=== PATIENT | male | born 1945 | race Caucasian/White ===

== ENCOUNTER 2017-06-09 19:39 | Emergency (ER) | payer MEDICARE ==
[~2017-06-09] VITALS: Ht 177.8 cm; Wt 78.7 kg
[~2017-06-09 19:39] MED LIST: ALBU8I; GUAI100S6 PO; PRED10PA PO; ZITH500T PO; eye drops
[2017-06-09 20:36] VITALS: BP 117/59; PULSE 96; RESP 19; TEMP 99.6; O2SAT 94
[2017-06-09 23:14] VITALS: BP 141/77; PULSE 77; RESP 18; TEMP 99.6; O2SAT 95
--- NOTE | 2017-06-09 23:34 | PD ---
HPI Chief Complaint: Cold / Flu Symptoms Time Seen by Provider: 23:12 Travel History International Travel<30 days: No Contact w/Intl Traveler<30days: No Traveled to known affect area: No History of Present Illness HPI patient 72-year-old male quite pleasant presents emergency department for evaluation of cough congestion for the past 4 days. Patient also endorses some mild body aches. Denies any nausea vomiting diarrhea. Intermittent fevers. States the cough is dry although he feels like he can't get up his phlegm. States he did not get a flu shot this year, is a cigar smoker daily. States symptoms are moderate, gradually worsening, for the past 4 days, context as above. PFSH Past Medical History Diminished Hearing: No Tetanus Vaccination: Unknown Influenza Vaccination: Yes Past Surgical History Abdominal Surgery: Yes (hernia repair) Other Surgery: Yes (back surgery) Social History Alcohol Use: Yes (daily) Tobacco Use: Yes (2 cigars daily) Substance Use: No Allergies-Medications (Allergen,Severity, Reaction): Coded Allergies: No Known Allergies (Verified Adverse Reaction, Unknown, 06/09/17) Reported Meds & Prescriptions Reported Meds & Active Scripts Active Reported Lovastatin 20 Mg Tab 20 Mg PO DAILY Oxycodone-Acetaminophen 5-325 mg Tab 1 Tab PO Q6H PRN Naproxen 250 Mg Tab 250 Mg PO BID Amlodipine (Amlodipine Besylate) 10 Mg Tab 10 Mg PO DAILY Azithromycin 250 Mg Tab 250 Mg PO DAILY Review of Systems Except as stated in HPI: all other systems reviewed are Neg Physical Exam Narrative GENERAL: Well-developed well-nourished no obvious distress SKIN: Focused skin assessment warm/dry. HEAD: Atraumatic. Normocephalic. EYES: Pupils equal and round. No scleral icterus. No injection or drainage. ENT: No nasal bleeding or discharge. Mucous membranes pink and moist. TMs clear bilaterally, oropharynx clear moist. NECK: Trachea midline. No JVD. CARDIOVASCULAR: Regular rate and rhythm. No murmur appreciated. RESPIRATORY: No accessory muscle use. Clear to auscultation. Breath sounds equal bilaterally. GASTROINTESTINAL: Abdomen soft, non-tender, nondistended. Hepatic and splenic margins not palpable. MUSCULOSKELETAL: No obvious deformities. No clubbing. No cyanosis. No edema. NEUROLOGICAL: Awake and alert. No obvious cranial nerve deficits. Motor grossly within normal limits. Normal speech. PSYCHIATRIC: Appropriate mood and affect; insight and judgment normal. Data Data Last Documented VS Vital Signs Date Time Temp Pulse Resp B/P (MAP) Pulse Ox O2 Delivery O2 Flow Rate FiO2 06/10/17 01:01 78 18 96 06/10/17 01:00 Room Air 06/09/17 23:14 99.6 Orders Orders Chest, Pa & Lat (06/09/17 ) Ed Discharge Order (06/10/17 00:13) MDM Medical Decision Making Medical Screen Exam Complete: Yes Emergency Medical Condition: Yes Differential Diagnosis Influenza, pneumonia, sepsis highly unlikely. Narrative Course patient roomed emerged permit, appears quite well and in no obvious distress, chest x-ray negative does show some scar tissue and the patient is a smoker. Discussed smoking cessation and smoking's many adverse health effects including heart attack and stroke as well as cancers. Patient was offered influenza testing but at this point he would be out of the realm for Tamiflu and therefore no indication for testing for influenza. He appears well, discussed symptomatic management returned ED criteria. He is stable for discharge Diagnosis Primary Impression: Flu-like symptoms Patient Instructions: General Instructions, H1N1 Influenza in Children (GEN) Additional Instructions: Try Mucinex DM [id number], take Tylenol or ibuprofen as needed for fever, stay hydrated with water and Gatorade. If you have worsening shortness of breath fever U cannot control or other symptoms that are worsening please return to the emergency department. Disposition: 01 DISCHARGE HOME Condition: Stable Jose Mcdowell MD Jun 09, 2017 23:34
[2017-06-09] MEDS ORDERED: AMLO10TA2 PO (23:37)
[2017-06-09] MEDS ORDERED: OXYC1TAB63 PO (23:37)
[2017-06-09] MEDS ORDERED: AZIT250T3 PO (23:37)
[2017-06-09] MEDS ORDERED: LOVA20TA PO (23:37)
[2017-06-09] MEDS ORDERED: NAPR250T4 PO (23:37)
--- NOTE | 2017-06-10 00:09 | RADRPT ---
EXAM DATE/TIME: 06/09/2017 23:28 [facility] COMPARISON: No previous studies available for comparison. INDICATIONS : Cough, fever, flu-like symptoms for 4 days MEDICAL HISTORY : Hypertension. SURGICAL HISTORY : None. ENCOUNTER: Initial ACUITY: 4 - 6 days PAIN SCORE: 0/10 LOCATION: Bilateral chest FINDINGS: PA and lateral views of the chest demonstrate the lungs to be symmetrically aerated without evidence of mass, infiltrate or effusion. There is hyperaeration of both lung gallegos. The cardiomediastinal c ontours are unremarkable. Osseous structures are intact. CONCLUSION: Hyperaeration both lung gallegos. No acute pulmonary infiltrates. Leon Moran MD on June 10, 2017 at 0:06 Board Certified Radiologist. This report was verified electronically.
[2017-06-10 01:00] VITALS: PULSE 78; RESP 18; O2SAT 96
== END 2017-06-10 01:02 | disposition home or self-care (01) ==
LOC: PHED 19:39
DX: J11.1 Influenza due to unidentified influenza virus with other respiratory manifestations (principal); F17.290 Nicotine dependence, other tobacco product, uncomplicated
CPT/HCPCS: 71046; 99283

== ENCOUNTER 2017-06-13 08:02 | Emergency (ER) | payer MEDICARE ==
[~2017-06-13] VITALS: Ht 177.8 cm; Wt 77.0 kg
[~2017-06-13 08:02] MED LIST changes: -ALBU8I; +AMLO10TA2 PO; +AZIT250T3 PO; -GUAI100S6 PO; +LOVA20TA PO; +NAPR250T4 PO; +OXYC1TAB63 PO; -PRED10PA PO; -ZITH500T PO; -eye drops
[2017-06-13 08:08] VITALS: BP 155/67; PULSE 91; RESP 18; TEMP 98.3; O2SAT 94
[2017-06-13] MEDS ORDERED: RESP: ALBUTEROL 2.5 MG/IPRATROPIUM 0.5 MG NEB (SCH) NEB ONE (08:30)
--- NOTE | 2017-06-13 08:32 | PD ---
HPI Chief Complaint: Cold / Flu Symptoms Time Seen by Provider: 08:14 Travel History International Travel<30 days: No Contact w/Intl Traveler<30days: No Traveled to known affect area: No History of Present Illness HPI This 72-year-old male is complaining of cough and congestion. He gets short of breath at times. He was here last and diagnosed with the flu. When he was here he has been having symptoms for about 4 days of cough congestion and fever. Flu test was not done as he was out of the window for Tamiflu. Since leaving he has not and feeling any better. He did smoke cigarettes in the past, he now only smokes cigars. He's been having low- grade fever and a nonproductive cough. He was told of a heart murmur in the past. He had a chest x-ray done which showed hyperaeration on both sides but no infiltrates. He has never been diagnosed with COPD. PFSH Past Medical History Cardiovascular Problems: Yes High Cholesterol: Yes Diminished Hearing: No Hypertension: Yes Tetanus Vaccination: Unknown Influenza Vaccination: Yes Past Surgical History Abdominal Surgery: Yes (hernia repair) Other Surgery: Yes (back surgery) Social History Alcohol Use: Yes (daily "couple of drinks") Tobacco Use: Yes (2 cigars daily) Substance Use: No Allergies-Medications (Allergen,Severity, Reaction): Coded Allergies: No Known Allergies (Verified Allergy, Unknown, 06/13/17) Reported Meds & Prescriptions Reported Meds & Active Scripts Active Ventolin Hfa 18 GM Inh (Albuterol Sulfate) 90 Mcg/Act Aer 2 Puff INH Q4-6H PRN Amoxicillin 500 Mg Tab 500 Mg PO TID 7 Days Medrol Dosepak (Methylprednisolone) 4 Mg Dspk 4 Mg PO DIRECTED Per Pharmacist direction Reported Lovastatin 20 Mg Tab 20 Mg PO DAILY Naproxen 250 Mg Tab 250 Mg PO BID Amlodipine (Amlodipine Besylate) 10 Mg Tab 10 Mg PO DAILY Review of Systems General / Constitutional: Positive: Fever, Chills Eyes: No: Diploplia, Blurred Vision HENT: Positive: Sore Throat, No: Headaches, Vertigo Cardiovascular: Positive: Chest Pain or Discomfort Respiratory: Positive: Cough, Shortness of Breath Gastrointestinal: No: Vomiting, Diarrhea Genitourinary: No: Dysuria Musculoskeletal: Positive: Myalgias Neurologic: Positive: Weakness Endocrine: No: Heat Intolerance, Cold Intolerance Hematologic/Lymphatic: No: Easy Bruising Physical Exam Narrative GENERAL: Well-developed male SKIN: Focused skin assessment warm/dry. HEAD: Atraumatic. Normocephalic. EYES: Pupils equal and round. No scleral icterus. No injection or drainage. ENT: No nasal bleeding or discharge. Mucous membranes pink and moist. NECK: Trachea midline. No JVD. Pharynx erythematous CARDIOVASCULAR: Regular rate and rhythm. No murmur appreciated. RESPIRATORY: He has bilateral rhonchi and occasional wheeze GASTROINTESTINAL: Abdomen soft, non-tender, nondistended. Hepatic and splenic margins not palpable. MUSCULOSKELETAL: No obvious deformities. No clubbing. No cyanosis. No edema. NEUROLOGICAL: Awake and alert. No obvious cranial nerve deficits. Motor grossly within normal limits. Normal speech. PSYCHIATRIC: Appropriate mood and affect; insight and judgment normal. Data Data Last Documented VS Vital Signs Date Time Temp Pulse Resp B/P (MAP) Pulse Ox O2 Delivery O2 Flow Rate FiO2 06/13/17 08:18 95 Room Air 06/13/17 08:08 98.3 91 18 155/67 (96) Orders Orders Electrocardiogram (06/13/17 08:25) Complete Blood Count With Diff (06/13/17 08:25) Comprehensive Metabolic Panel (06/13/17 08:25) Troponin I (06/13/17 08:25) B-Type Natriuretic Peptide (06/13/17 08:25) Albuterol-Ipratropium Neb (Duoneb Neb) (06/13/17 08:30) Chest, Pa & Lat (06/13/17 08:54) Ceftriaxone Inj (Rocephin Inj) (06/13/17 09:30) Methylprednisolone So Succ Inj (Solumedr (06/13/17 09:30) Ed Discharge Order (06/13/17 10:10) Labs Laboratory Tests Test 06/13/17 09:00 White Blood Count 14.4 TH/MM3 Red Blood Count 4.38 MIL/MM3 Hemoglobin 14.1 GM/DL Hematocrit 42.9 % Mean Corpuscular Volume 98.0 FL Mean Corpuscular Hemoglobin 32.2 PG Mean Corpuscular Hemoglobin Concent 32.8 % Red Cell Distribution Width 16.5 % Platelet Count 398 TH/MM3 Mean Platelet Volume 8.0 FL Neutrophils (%) (Auto) 83.2 % Lymphocytes (%) (Auto) 7.2 % Monocytes (%) (Auto) 8.7 % Eosinophils (%) (Auto) 0.5 % Basophils (%) (Auto) 0.4 % Neutrophils # (Auto) 12.0 TH/MM3 Lymphocytes # (Auto) 1.0 TH/MM3 Monocytes # (Auto) 1.2 TH/MM3 Eosinophils # (Auto) 0.1 TH/MM3 Basophils # (Auto) 0.1 TH/MM3 CBC Comment DIFF FINAL Differential Comment Blood Urea Nitrogen 10 MG/DL Creatinine 0.68 MG/DL Random Glucose 97 MG/DL Total Protein 6.8 GM/DL Albumin 2.8 GM/DL Calcium Level 8.5 MG/DL Alkaline Phosphatase 63 U/L Aspartate Amino Transf (AST/SGOT) 48 U/L Alanine Aminotransferase (ALT/SGPT) 33 U/L Total Bilirubin 0.9 MG/DL Sodium Level 133 MEQ/L Potassium Level 3.7 MEQ/L Chloride Level 100 MEQ/L Carbon Dioxide Level 20.0 MEQ/L Anion Gap 13 MEQ/L Estimat Glomerular Filtration Rate 114 ML/MIN Troponin I LESS THAN 0.02 NG/ML B-Type Natriuretic Peptide 240 PG/ML MDM Medical Decision Making Medical Screen Exam Complete: Yes Emergency Medical Condition: Yes Medical Record Reviewed: Yes Differential Diagnosis Differential diagnosis includes pneumonia, influenza, COPD exacerbation Narrative Course Patient has been given a couple of aerosol treatment with minimal improvement. Chest x-ray is read as showing fibrotic changes without acute infiltrate. I believe he is having a exacerbation of COPD which is triggered by influenza. He will be put on antibiotics and Solu-Medrol as well as albuterol. Diagnosis Primary Impression: COPD exacerbation Scripts Albuterol 18 GM Inh (Ventolin Hfa 18 GM Inh) 90 Mcg/Act Aer 2 PUFF INH Q4-6H Y for SHORTNESS OF BREATH, #1 INHALER 0 Refills Prov: Gunnar Robison MD 06/13/17 Amoxicillin (Amoxicillin) 500 Mg Tab 500 MG PO TID for Infection for 7 Days, TAB 0 Refills Prov: Gunnar Robison MD 06/13/17 Methylprednisolone Dosepak (Medrol Dosepak) 4 Mg Dspk 4 MG PO DIRECTED, #1 DSPK 0 Refills Per Pharmacist direction Prov: Gunnar Robison MD 06/13/17 Disposition: 01 DISCHARGE HOME Condition: Stable Gunnar Robison MD Jun 13, 2017 08:32
[2017-06-13 09:11] LABS: BASOPHIL # 0.1 TH/MM3 (0-0.2); BASOPHIL % 0.4 % (0.0-2.0); EOSINOPHIL # 0.1 TH/MM3 (0-0.4); EOSINOPHIL % 0.5 % (0.0-4.0); HEMATOCRIT 42.9 % (39.0-51.0); HEMOGLOBIN 14.1 GM/DL (13.0-17.0); LYMPH % 7.2 % (9.0-44.0); MEAN CORPUSCULAR HEMOGLOBIN 32.2 PG (27.0-34.0); MEAN CORPUSCULAR HGB CONC 32.8 % (32.0-36.0); MONO % 8.7 % (0.0-8.0); MONOCYTE # 1.2 TH/MM3 (0-0.9); NEUT % 83.2 % (16.0-70.0); PLATELET COUNT 398 TH/MM3 (150-450); RED BLOOD COUNT 4.38 MIL/MM3 (4.50-5.90); RED CELL DISTRIBUTION WIDTH 16.5 % (11.6-17.2); WHITE BLOOD COUNT 14.4 TH/MM3 (4.0-11.0)
--- NOTE | 2017-06-13 09:29 | RADRPT ---
EXAM DATE/TIME: 06/13/2017 09:08 [facility] COMPARISON: CHEST SINGLE AP, February 12, 2012, 10:42. CHEST PA & LAT, June 09, 2017, 23:28. INDICATIONS : Short of breath MEDICAL HISTORY : Hypertension. SURGICAL HISTORY : None. ENCOUNTER: [facility] ACUITY: 1 week PAIN SCORE: 0/10 LOCATION: Bilateral chest FINDINGS: Again noted is hyperinflation and mild interstitial basilar lung disease which is unchanged. No acute consolidated process superimposed. CONCLUSION: Stable chest with no acute cardiopulmonary process Jules Miller MD on June 13, 2017 at 9:24 Board Certified Radiologist. This report was verified electronically.
[2017-06-13] MEDS ORDERED: cefTRIAXone INJ 1,000 MG in SODIUM CHLORIDE 0.9% INJ 100 ML IV ONE (09:30)
[2017-06-13] MEDS ORDERED: methylPREDNISolone SOD SUCC 125 MG/2 ML VIAL IV PUSH ONE (09:30)
[2017-06-13] MEDS ORDERED: MEDR4PAK PO (09:33)
[2017-06-13] MEDS ORDERED: AMOX500T PO (09:33)
[2017-06-13] MEDS ORDERED: VENTAER INH (09:34)
[2017-06-13 09:55] LABS: ALBUMIN 2.8 GM/DL (3.4-5.0); CALCIUM 8.5 MG/DL (8.5-10.1); GLUCOSE,RANDOM 97 MG/DL (74-106)
[2017-06-13 09:58] LABS: CREATININE 0.68 MG/DL (0.60-1.30); GLOMERULAR FILTRATION RATE 114 ML/MIN (>89)
[2017-06-13 10:00] LABS: TOTAL BILIRUBIN ADULT 0.9 MG/DL (0.2-1.0); TOTAL PROTEIN 6.8 GM/DL (6.4-8.2)
[2017-06-13 10:01] LABS: ALKALINE PHOSPHATASE 63 U/L (45-117)
[2017-06-13 10:03] LABS: CHLORIDE 100 MEQ/L (98-107); SODIUM (NA) 133 MEQ/L (136-145); TROPONIN I LESS THAN 0.02 NG/ML (0.02-0.05)
[2017-06-13 10:07] LABS: ALT (GPT) 33 U/L (12-78)
[2017-06-13 10:11] LABS: AST (GOT) 48 U/L (15-37); BLOOD UREA NITROGEN 10 MG/DL (7-18)
--- NOTE | 2017-06-13 16:03 | EKG ---
Date Performed: 06/13/2017 Time Performed: 08:42:57 PTAGE: 72 years EKG: WANDERING ATRIAL PACEMAKER POSSIBLE RIGHT VENTRICULAR CONDUCTION DELAY ABNORMAL RHYTHM ECG Compared to PREVIOUS TRACING , wandering pacer is new. PREVIOUS TRACIN02/12/2012 10.33 DOCTOR: Amadou Padgett Interpretating Date/Time 06/13/2017 16:02:39
== END 2017-06-13 10:24 | disposition home or self-care (01) ==
LOC: PHEFT 08:02
DX: J44.1 Chronic obstructive pulmonary disease with (acute) exacerbation (principal); R94.31 Abnormal electrocardiogram [ECG] [EKG]; I10 Essential (primary) hypertension; E78.00 Pure hypercholesterolemia, unspecified; F17.290 Nicotine dependence, other tobacco product, uncomplicated; Z79.899 Other long term (current) drug therapy
CPT/HCPCS: 71046; 80053; 83880; 84484; 85025; 93005; 94640; 94664; 96365; 96375; 99285; J0696; J2930

== ENCOUNTER 2017-06-21 09:19 | Emergency (ER) | payer MEDICARE ==
[~2017-06-21] VITALS: Ht 170.2 cm; Wt 77.9 kg
[~2017-06-21 09:19] MED LIST changes: +AMOX500T PO; -AZIT250T3 PO; +MEDR4PAK PO; -OXYC1TAB63 PO; +VENTAER INH
[2017-06-21 09:24] VITALS: BP 173/82; PULSE 101; RESP 16; TEMP 98; O2SAT 97
[2017-06-21 09:32] LABS: BILIRUBIN, URINE NEG (NEG); BLOOD, URINE NEG (NEG); GLUCOSE,URINE NEG (NEG); KETONE, URINE NEG (NEG); NITRITE,URINE NEG (NEG); URINE LEUKOCYTE ESTERASE NEG (NEG)
[2017-06-21] MEDS ORDERED: GLUC100013 PO (09:34)
[2017-06-21] MEDS ORDERED: CIPR-9 PO (09:34)
[2017-06-21] MEDS ORDERED: TIMO0.5S30 EACH EYE (09:34)
[2017-06-21 09:37] LABS: RBC, URINE 0-3 /hpf (0-3); SQUAMOUS EPITHELIAL CELL URINE 0-5 /hpf (0-5); URINE COLOR YELLOW (YELLW/STRAW)
--- NOTE | 2017-06-21 09:46 | PD ---
HPI Chief Complaint: Complaint Time Seen by Provider: 09:29 Travel History International Travel<30 days: No Contact w/Intl Traveler<30days: No Traveled to known affect area: No History of Present Illness HPI 72 y/o male presents with difficulty urinating over the past 3 days. He states he can only get out a small amount. He states it is gotten worse since his doctor placed him on ciprofloxacin. He states they placed him on that and took a urinalysis sample at the same time but he did not get the results. He states that he has not been able to urinate bathroom and it has just been seeping out in small amounts into his underwear. He denies other specific complaints at this time but is difficult to get history from as he cannot recall the exact amount At the current time. PFSH Past Medical History Cardiovascular Problems: Yes High Cholesterol: Yes Diminished Hearing: No Hypertension: Yes Past Surgical History Abdominal Surgery: Yes (hernia repair) Other Surgery: Yes (back surgery) Social History Alcohol Use: Yes (daily "couple of drinks") Tobacco Use: Yes (2 cigars daily) Substance Use: No Allergies-Medications (Allergen,Severity, Reaction): Coded Allergies: No Known Allergies (Verified Allergy, Unknown, 06/21/17) Reported Meds & Prescriptions Reported Meds & Active Scripts Active Reported Glucosamine (Glucosamine Sulfate) 1,000 Mg Cap 1,000 Mg PO DAILY Timolol Opth Drops 0.5 % Soln 1 Drop EACH EYE BID Cipro (Ciprofloxacin HCl) 500 Mg Tab 500 Mg PO BID Lovastatin 20 Mg Tab 20 Mg PO DAILY Amlodipine (Amlodipine Besylate) 10 Mg Tab 10 Mg PO DAILY Review of Systems Except as stated in HPI: all other systems reviewed are Neg Physical Exam Narrative GENERAL: Well-nourished, well-developed patient. SKIN: Warm and dry. HEAD: Normocephalic and atraumatic. EYES: No injection or drainage. ENT: No nasal drainage noted. NECK: Supple, trachea midline. CARDIOVASCULAR: Regular rate and rhythm RESPIRATORY: Breath sounds equal bilaterally. No accessory muscle use. GASTROINTESTINAL: Abdomen soft, non-tender, nondistended. EXTREMITIES: No edema. NEUROLOGICAL: Awake and alert. moves all extremities and sensory grossly within normal limits. Normal speech. Data Data Last Documented VS Vital Signs Date Time Temp Pulse Resp B/P (MAP) Pulse Ox O2 Delivery O2 Flow Rate FiO2 06/21/17 10:42 81 20 141/70 (93) 96 06/21/17 09:24 98.0 Orders Orders Urinalysis - C+S If Indicated (06/21/17 09:23) Complete Blood Count With Diff (06/21/17 09:35) Comprehensive Metabolic Panel (06/21/17 09:35) Lipase (06/21/17 09:35) Ct Abd/Pel W/O Iv Contrast (06/21/17 ) Iv Access Insert/Monitor (06/21/17 09:35) Urinary Catheter Insert/Apply (06/21/17 09:35) Ed Discharge Order (06/21/17 11:14) Labs Laboratory Tests Test 06/21/17 09:23 06/21/17 09:48 Urine Collection Type CLEAN CATCH Urine Color YELLOW Urine Turbidity CLEAR Urine pH 6.0 Urine Specific [place] 1.011 Urine Protein NEG mg/dL Urine Glucose (UA) NEG mg/dL Urine Ketones NEG mg/dL Urine Occult Blood NEG Urine Nitrite NEG Urine Bilirubin NEG Urine Leukocyte Esterase NEG Urine RBC 0-3 /hpf Urine Squamous Epithelial Cells 0-5 /hpf Microscopic Urinalysis Comment CULT NOT INDICATED Urine Collection Time 09:23 White Blood Count 14.5 TH/MM3 Red Blood Count 4.57 MIL/MM3 Hemoglobin 14.8 GM/DL Hematocrit 45.1 % Mean Corpuscular Volume 98.7 FL Mean Corpuscular Hemoglobin 32.3 PG Mean Corpuscular Hemoglobin Concent 32.7 % Red Cell Distribution Width 17.3 % Platelet Count 484 TH/MM3 Mean Platelet Volume 7.6 FL Neutrophils (%) (Auto) 73.1 % Lymphocytes (%) (Auto) 12.4 % Monocytes (%) (Auto) 11.7 % Eosinophils (%) (Auto) 0.9 % Basophils (%) (Auto) 1.9 % Neutrophils # (Auto) 10.6 TH/MM3 Lymphocytes # (Auto) 1.8 TH/MM3 Monocytes # (Auto) 1.7 TH/MM3 Eosinophils # (Auto) 0.1 TH/MM3 Basophils # (Auto) 0.3 TH/MM3 CBC Comment DIFF FINAL Differential Comment Blood Urea Nitrogen 17 MG/DL Creatinine 1.10 MG/DL Random Glucose 104 MG/DL Total Protein 7.1 GM/DL Albumin 3.2 GM/DL Calcium Level 8.5 MG/DL Alkaline Phosphatase 53 U/L Aspartate Amino Transf (AST/SGOT) 29 U/L Alanine Aminotransferase (ALT/SGPT) 38 U/L Total Bilirubin 1.0 MG/DL Sodium Level 136 MEQ/L Potassium Level 3.8 MEQ/L Chloride Level 102 MEQ/L Carbon Dioxide Level 22.9 MEQ/L Anion Gap 11 MEQ/L Estimat Glomerular Filtration Rate 65 ML/MIN Lipase 309 U/L MDM Medical Decision Making Medical Screen Exam Complete: Yes Emergency Medical Condition: Yes Medical Record Reviewed: Yes (pmh confirmed) Interpretation(s) CBC & BMP Diagram 06/21/17 09:48 Total Protein 7.1, Albumin 3.2 L, Calcium Level 8.5, Alkaline Phosphatase 53, Aspartate Amino Transf (AST/SGOT) 29, Alanine Aminotransferase (ALT/SGPT) 38, Total Bilirubin 1.0 CT abdomen pelvis shows enlarged prostate, bladder wall thickening, diverticulosis without diverticulitis, stone within the kidney without ureteral stone-patient given copy for follow-up UA without UTI Differential Diagnosis UTI, obstruction, stone, renal failure, constipation Narrative Course Will check blood work, urinalysis, CT scan abdominal pelvis and reevaluate Patient with 1200 mL immediate urine output and feeling better Patient advised to keep Diaz in place and follow with his urologist. Given mild leukocytosis and bladder wall thickening recommended to continue ciprofloxacin.Patient denies any new complaints and states that they are feeling better. Patient happy with care, all questions answered. Patient knows that follow up is incumbent on them and to return to the emergency room immediately if new or worsening symptoms develop. Patient given strict return precautions, vitals reviewed and are normal, agrees to further workup as an outpatient. Diagnosis Primary Impression: Urinary retention Patient Instructions: General Instructions Additional Instructions: Return as needed, continue antibiotic, follow with your urologist this week, keep Diaz catheter in place Med/Other Pt SpecificInfo: No Change to Meds Disposition: 01 DISCHARGE HOME Condition: Stable Mirta Jay MD Jun 21, 2017 09:46
[2017-06-21 09:54] LABS: AUTOMATED NEUTROPHIL # 10.6 TH/MM3 (1.8-7.7); BASOPHIL # 0.3 TH/MM3 (0-0.2); BASOPHIL % 1.9 % (0.0-2.0); EOSINOPHIL # 0.1 TH/MM3 (0-0.4); EOSINOPHIL % 0.9 % (0.0-4.0); HEMATOCRIT 45.1 % (39.0-51.0); HEMOGLOBIN 14.8 GM/DL (13.0-17.0); LYMPH % 12.4 % (9.0-44.0); LYMPHOCYTE # 1.8 TH/MM3 (1.0-4.8); MEAN CELL VOLUME 98.7 FL (80.0-100.0); MEAN CORPUSCULAR HEMOGLOBIN 32.3 PG (27.0-34.0); MEAN CORPUSCULAR HGB CONC 32.7 % (32.0-36.0); MEAN PLATELET VOLUME 7.6 FL (7.0-11.0); MONO % 11.7 % (0.0-8.0); MONOCYTE # 1.7 TH/MM3 (0-0.9); NEUT % 73.1 % (16.0-70.0); PLATELET COUNT 484 TH/MM3 (150-450); RED BLOOD COUNT 4.57 MIL/MM3 (4.50-5.90); RED CELL DISTRIBUTION WIDTH 17.3 % (11.6-17.2); WHITE BLOOD COUNT 14.5 TH/MM3 (4.0-11.0)
[2017-06-21 10:08] LABS: CHLORIDE 102 MEQ/L (98-107); SODIUM (NA) 136 MEQ/L (136-145)
[2017-06-21 10:11] LABS: CALCIUM 8.5 MG/DL (8.5-10.1)
[2017-06-21 10:12] LABS: ALBUMIN 3.2 GM/DL (3.4-5.0); BICARBONATE 22.9 MEQ/L (21.0-32.0); BLOOD UREA NITROGEN 17 MG/DL (7-18); GLUCOSE,RANDOM 104 MG/DL (74-106); LIPASE 309 U/L (73-393)
[2017-06-21 10:15] LABS: AST (GOT) 29 U/L (15-37); GLOMERULAR FILTRATION RATE 65 ML/MIN (>89)
[2017-06-21 10:16] LABS: ALT (GPT) 38 U/L (12-78)
[2017-06-21 10:17] LABS: TOTAL PROTEIN 7.1 GM/DL (6.4-8.2)
[2017-06-21 10:18] LABS: ALKALINE PHOSPHATASE 53 U/L (45-117)
[2017-06-21 10:42] VITALS: BP 141/70; PULSE 81; RESP 20; O2SAT 96
--- NOTE | 2017-06-21 11:09 | RADRPT ---
EXAM DATE/TIME: 06/21/2017 10:07 [facility] COMPARISON: No previous studies available for comparison. INDICATIONS : Unable to urinate. ORAL CONTRAST: No oral contrast ingested. RADIATION DOSE: 16.97 CTDIvol (mGy) MEDICAL HISTORY : Hypercholesterolemia. Hypertension. SURGICAL HISTORY : Hernia repair. Back surgery. ENCOUNTER: Initial ACUITY: 3 days PAIN SCALE: 0/10 LOCATION: pelvis TECHNIQUE: Volumetric scanning of the abdomen and pelvis was performed. Using automated exposure control and ad justment of the mA and/or kV according to patient size, radiation dose was kept as low as reasonably achievable to obtain optimal diagnostic quality images. DICOM format image data is available electro nically for review and comparison. FINDINGS: No acute findings in the liver, spleen, adrenals, pancreas. Calcified gallstones in gallbladder witho ut biliary ductal dilatation. There is mild dilatation of the extrarenal pelvis bilaterally, worse on the right side. Tiny nonobstr ucting calcifications present in the left kidney. Bilateral renal cysts. The prostate is markedly enlarged measuring up to 7.4 cm in diameter. Diaz catheter present in the b ladder some bladder wall thickening. Colonic diverticulosis present. CONCLUSION: 1. Prostate enlarged to 7.4 cm in diameter a Diaz catheter in bladder. Bladder wall thickening. 2. Mild dilatation of extrarenal pelvis bilaterally, slightly worse on the right. Tiny nonobstructing calcifications in the left kidney. 3. Colonic diverticulosis without diverticulitis. James Owen MD on June 21, 2017 at 11:01 Board Certified Radiologist. This report was verified electronically.
== END 2017-06-21 11:40 | disposition home or self-care (01) ==
LOC: PHED 09:19
DX: N40.1 Benign prostatic hyperplasia with lower urinary tract symptoms (principal); R33.8 Other retention of urine; E78.00 Pure hypercholesterolemia, unspecified; I10 Essential (primary) hypertension; F17.290 Nicotine dependence, other tobacco product, uncomplicated
CPT/HCPCS: 74176; 80053; 81001; 83690; 85025; 99284

== ENCOUNTER 2017-07-10 07:49 | Emergency (ER) | payer MEDICARE ==
[~2017-07-10] VITALS: Ht 177.8 cm; Wt 74.0 kg
[~2017-07-10 07:49] MED LIST changes: -AMOX500T PO; +CIPR-9 PO; +GLUC100013 PO; -MEDR4PAK PO; -NAPR250T4 PO; +TIMO0.5S30 EACH EYE; -VENTAER INH
[2017-07-10 07:51] VITALS: BP 160/75; PULSE 105; RESP 16; TEMP 98; O2SAT 98
--- NOTE | 2017-07-10 08:12 | PD ---
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 Reports urinary retention secondary to an enlarged prostate. Catheter was placed 3 weeks ago. Started malfunctioning yesterday with complete obstruction last night. Denies any nausea vomiting diarrhea or fever. Completed antibiotics. Following with urology. REPLACED BY [facility] Past Medical History Cardiovascular Problems: Yes High Cholesterol: Yes Diminished Hearing: No Hypertension: Yes Influenza Vaccination: Yes Past Surgical History Abdominal Surgery: Yes (hernia repair) Other Surgery: Yes (back surgery) Social History Alcohol Use: Yes (daily "couple of drinks") Tobacco Use: Yes (2 cigars daily) Substance Use: No Allergies-Medications (Allergen,Severity, Reaction): Coded Allergies: No Known Allergies (Verified Allergy, Unknown, 07/10/17) Reported Meds & Prescriptions Reported Meds & Active Scripts Active Reported Glucosamine (Glucosamine Sulfate) 1,000 Mg Cap 1,000 Mg PO DAILY Timolol Opth Drops 0.5 % Soln 1 Drop EACH EYE BID Lovastatin 20 Mg Tab 20 Mg PO DAILY Amlodipine (Amlodipine Besylate) 10 Mg Tab 10 Mg PO DAILY Review of Systems General / Constitutional: No: Fever Eyes: No: Visual changes HENT: No: Headaches Cardiovascular: No: Chest Pain or Discomfort Respiratory: No: Shortness of Breath Gastrointestinal: No: Abdominal Pain Genitourinary: Positive: Decreased Urinary Output, No: Dysuria Musculoskeletal: No: Pain Skin: No Rash Neurologic: No: Weakness Psychiatric: No: Depression Endocrine: No: Polydipsia Hematologic/Lymphatic: No: Easy Bruising Physical Exam Narrative GENERAL: Well-nourished, well-developed patient. SKIN: Focused skin assessment warm/dry. HEAD: Normocephalic. EYES: No scleral icterus. No injection or drainage. NECK: Supple, trachea midline. No JVD or lymphadenopathy. CARDIOVASCULAR: Regular rate and rhythm without murmurs, gallops, or rubs. RESPIRATORY: Breath sounds equal bilaterally. No accessory muscle use. GASTROINTESTINAL: Abdomen soft, non-tender, nondistended. Urinary catheter in place MUSCULOSKELETAL: No cyanosis, or edema. BACK: Nontender without obvious deformity. No CVA tenderness. Data Data Last Documented VS Vital Signs Date Time Temp Pulse Resp B/P (MAP) Pulse Ox O2 Delivery O2 Flow Rate FiO2 07/10/17 07:51 98.0 105 16 160/75 (103) 98 Orders Orders Urinalysis - C+S If Indicated (07/10/17 08:28) Urinary Catheter - Remove (07/10/17 08:29) Urinary Catheter Insert/Apply (07/10/17 08:29) Labs Laboratory Tests Test 07/10/17 08:33 Urine Collection Type CATH Urine Color YELLOW Urine Turbidity SLIGHTY CLOUDY Urine pH 6.0 Urine Specific [place] 1.006 Urine Protein NEG mg/dL Urine Glucose (UA) NEG mg/dL Urine Ketones NEG mg/dL Urine Occult Blood LARGE Urine Nitrite NEG Urine Bilirubin NEG Urine Leukocyte Esterase SMALL Urine RBC 25-49 /hpf Urine WBC 0-2 /hpf Microscopic Urinalysis Comment CULT NOT INDICATED MDM Medical Decision Making Medical Screen Exam Complete: Yes Emergency Medical Condition: Yes 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 Urinary catheter flushing attempted without success. Urinary catheter replaced with removal of a large blood clot. Urinary output >1100cc. Diagnosis Primary Impression: Urinary retention Patient Instructions: General Instructions Additional Instructions: Encourage fluids, consider cranberry supplement, keep regular scheduled appointment with urology, return to emergency with any onset of new symptoms Med/Other Pt SpecificInfo: No Meds Exist/No RX given Disposition: 01 DISCHARGE HOME Condition: Good Kenny Palomino MD Jul 10, 2017 08:12
[2017-07-10 08:55] LABS: BILIRUBIN, URINE NEG (NEG); BLOOD, URINE LARGE (NEG); GLUCOSE,URINE NEG (NEG); KETONE, URINE NEG (NEG); NITRITE,URINE NEG (NEG); URINE LEUKOCYTE ESTERASE SMALL (NEG)
[2017-07-10 09:01] LABS: URINE COLOR YELLOW (YELLW/STRAW)
[2017-07-10 09:02] LABS: WBC, URINE 0-2 /hpf (0-5)
== END 2017-07-10 09:37 | disposition home or self-care (01) ==
LOC: PHED 07:49
DX: R33.8 Other retention of urine (principal); E78.00 Pure hypercholesterolemia, unspecified; I10 Essential (primary) hypertension; Z72.0 Tobacco use
CPT/HCPCS: 51702; 81001

== ENCOUNTER 2017-07-13 20:26 | Emergency (ER) | payer MEDICARE ==
[~2017-07-13] VITALS: Ht 177.8 cm; Wt 75.4 kg
[~2017-07-13 20:26] MED LIST changes: -CIPR-9 PO
[2017-07-13 20:35] VITALS: BP 134/81; PULSE 118; RESP 24; TEMP 97.9; O2SAT 97
[2017-07-13 21:40] VITALS: BP 139/71; O2SAT 95
--- NOTE | 2017-07-13 22:06 | PD ---
HPI Chief Complaint: Complaint Time Seen by Provider: 20:49 Travel History International Travel<30 days: No Contact w/Intl Traveler<30days: No Traveled to known affect area: No History of Present Illness HPI 72-year-old male with history of prostatic enlargement, urinary retention, Diaz catheter in place that was replaced by his urologist Dr. Krueger yesterday, here for evaluation of suprapubic discomfort, bladder distention, inability to pass urine through his Diaz catheter. Symptoms started this afternoon. Patient is very frustrated because this has happened to him several times over the last couple of weeks. Pain is moderate to severe, constant, worse with movements. PFSH Past Medical History Cardiovascular Problems: Yes High Cholesterol: Yes Diminished Hearing: No Hypertension: Yes Medical other: Yes (BPH) Tetanus Vaccination: Unknown ?: Not Past Surgical History Abdominal Surgery: Yes (hernia repair) Other Surgery: Yes (back surgery) Social History Alcohol Use: Yes (daily "couple of drinks") Tobacco Use: Yes (2 cigars daily) Substance Use: No Allergies-Medications (Allergen,Severity, Reaction): Coded Allergies: No Known Allergies (Verified Allergy, Unknown, 07/10/17) Reported Meds & Prescriptions Reported Meds & Active Scripts Active Reported Glucosamine (Glucosamine Sulfate) 1,000 Mg Cap 1,000 Mg PO DAILY Lovastatin 20 Mg Tab 20 Mg PO DAILY Amlodipine (Amlodipine Besylate) 10 Mg Tab 10 Mg PO DAILY Review of Systems Except as stated in HPI: all other systems reviewed are Neg Physical Exam Narrative GENERAL: Well-developed, well-nourished, uncomfortable. SKIN: Focused skin assessment warm/dry. No rash. HEAD: Atraumatic. Normocephalic. EYES: Pupils equal and round. No scleral icterus. No injection or drainage. ENT: Mucous membranes pink and moist. CARDIOVASCULAR: Regular rate and rhythm. RESPIRATORY: No accessory muscle use. Clear to auscultation. Breath sounds equal bilaterally. GASTROINTESTINAL: Abdomen soft, moderate suprapubic tenderness with distended bladder that is palpable. MUSCULOSKELETAL: No obvious deformities. No clubbing. No cyanosis. No edema. NEUROLOGICAL: Awake and alert. No obvious cranial nerve deficits. Motor grossly within normal limits. Normal speech. PSYCHIATRIC: Appropriate mood and affect; insight and judgment normal. Data Data Last Documented VS Vital Signs Date Time Temp Pulse Resp B/P (MAP) Pulse Ox O2 Delivery O2 Flow Rate FiO2 07/13/17 21:40 83 18 139/71 (93) 95 Room Air 07/13/17 20:35 97.9 Orders Orders Replace Diaz (07/13/17 21:51) MDM Medical Decision Making Medical Screen Exam Complete: Yes Emergency Medical Condition: Yes Differential Diagnosis Urinary retention, Diaz catheter obstruction Narrative Course Initially my nurse attempted to flush the patient's Diaz catheter without success. The catheter was then removed and a large blood clot was removed with it. A three-way 20 Nepali Diaz catheter was then placed with 800 cc of clear/ yellow urine output. The patient's symptoms completely resolved. His abdominal exam is benign. He is stable for discharge home with outpatient follow-up with his urologist Dr. Krueger this week. He was advised on when to return to the emergency department. He verbalizes understanding and agreement with plan. Diagnosis Primary Impression: Obstructed Diaz catheter Qualified Codes: T83.091A - Other mechanical complication of indwelling urethral catheter, initial encounter Referrals: Adam Krueger MD 3 days Additional Instructions: Follow-up with your urologist Dr. Krueger this week. Return to the emergency department for worsening symptoms or any other concerns. Disposition: 01 DISCHARGE HOME Condition: Stable Aftab Pedraza MD Jul 13, 2017 22:06
[2017-07-13 22:33] VITALS: BP 107/71
== END 2017-07-13 22:55 | disposition home or self-care (01) ==
LOC: PHED 20:26
DX: T83.091A Other mechanical complication of indwelling urethral catheter, initial encounter (principal); E78.00 Pure hypercholesterolemia, unspecified; I10 Essential (primary) hypertension; F17.290 Nicotine dependence, other tobacco product, uncomplicated; X58.XXXA Exposure to other specified factors, initial encounter
CPT/HCPCS: 51700

== ENCOUNTER 2017-07-30 02:25 | Emergency (ER) | payer MEDICARE ==
[~2017-07-30] VITALS: Ht 177.8 cm; Wt 76.5 kg
[~2017-07-30 02:25] MED LIST changes: -TIMO0.5S30 EACH EYE
[2017-07-30 02:30] VITALS: BP 161/80; PULSE 92; RESP 24; TEMP 98.1; O2SAT 96
[2017-07-30] MEDS ORDERED: ACET-822 PO (03:05)
[2017-07-30] MEDS ORDERED: VITA10002 PO (03:06)
[2017-07-30 03:08] LABS: BILIRUBIN, URINE NEG (NEG); BLOOD, URINE LARGE (NEG); GLUCOSE,URINE NEG (NEG); KETONE, URINE NEG (NEG); NITRITE,URINE NEG (NEG); PH, URINE 5.5 (5.0-8.5); URINE COLOR YELLOW (YELLW/STRAW); URINE LEUKOCYTE ESTERASE SMALL (NEG)
[2017-07-30 03:10] LABS: AUTOMATED NEUTROPHIL # 7.8 TH/MM3 (1.8-7.7); BASOPHIL # 0.1 TH/MM3 (0-0.2); BASOPHIL % 0.8 % (0.0-2.0); EOSINOPHIL # 0.5 TH/MM3 (0-0.4); EOSINOPHIL % 4.3 % (0.0-4.0); HEMATOCRIT 43.3 % (39.0-51.0); HEMOGLOBIN 13.9 GM/DL (13.0-17.0); LYMPH % 17.7 % (9.0-44.0); MEAN CELL VOLUME 98.1 FL (80.0-100.0); MEAN CORPUSCULAR HEMOGLOBIN 31.6 PG (27.0-34.0); MEAN CORPUSCULAR HGB CONC 32.2 % (32.0-36.0); MEAN PLATELET VOLUME 7.6 FL (7.0-11.0); MONO % 6.6 % (0.0-8.0); MONOCYTE # 0.7 TH/MM3 (0-0.9); NEUT % 70.6 % (16.0-70.0); PLATELET COUNT 375 TH/MM3 (150-450); RED BLOOD COUNT 4.41 MIL/MM3 (4.50-5.90); RED CELL DISTRIBUTION WIDTH 17.9 % (11.6-17.2); WHITE BLOOD COUNT 11.1 TH/MM3 (4.0-11.0)
[2017-07-30] MEDS ORDERED: SODIUM CHLORID 0.9% 500 ML INJ 500 ML IV ONE (03:15)
[2017-07-30 03:16] LABS: BACTERIA, URINE OCC /hpf; SQUAMOUS EPITHELIAL CELL URINE 0-5 /hpf (0-5); WHITE BLOOD CELL CLUMPS FEW
[2017-07-30 03:18] LABS: CHLORIDE 109 MEQ/L (98-107); SODIUM (NA) 140 MEQ/L (136-145)
[2017-07-30 03:21] LABS: ALBUMIN 3.3 GM/DL (3.4-5.0); BICARBONATE 20.5 MEQ/L (21.0-32.0); BLOOD UREA NITROGEN 13 MG/DL (7-18); CALCIUM 8.4 MG/DL (8.5-10.1); GLUCOSE,RANDOM 92 MG/DL (74-106)
[2017-07-30 03:24] LABS: ALT (GPT) 23 U/L (12-78); AST (GOT) 23 U/L (15-37); CREATININE 0.77 MG/DL (0.60-1.30); GLOMERULAR FILTRATION RATE 99 ML/MIN (>89)
[2017-07-30 03:26] LABS: TOTAL BILIRUBIN ADULT 0.4 MG/DL (0.2-1.0)
[2017-07-30 03:27] LABS: ALKALINE PHOSPHATASE 54 U/L (45-117)
[2017-07-30] MEDS ORDERED: BACT800T5 PO (03:29)
--- NOTE | 2017-07-30 03:30 | PD ---
HPI . Genitourinary complaint Chief Complaint: Complaint Time Seen by Provider: 02:32 Travel History International Travel<30 days: No Contact w/Intl Traveler<30days: No Traveled to known affect area: No History of Present Illness HPI 72-year-old male with indwelling Diaz, scheduled for TURP next 5 days, presents with having probable clogged Diaz, no Diaz drainage, suprapubic pubic fullness and penile pain. Patient denies fever chills sweats, nausea vomiting. PFSH Past Medical History Narrative Medical Past medical history reviewed Cardiovascular Problems: Yes High Cholesterol: Yes COPD: Yes Diminished Hearing: No Genitourinary: Yes (BPH) Hypertension: Yes Shingles: Yes Tetanus Vaccination: > 5 Years Influenza Vaccination: Yes Past Surgical History Abdominal Surgery: Yes (RIGHT INGUINAL HERNIA REPAIR) Other Surgery: Yes (HEMANGIOMA REMOVED FROM UPPER SPINE) Social History Alcohol Use: Yes (daily "couple of drinks") Tobacco Use: Yes (1 cigar daily) Substance Use: No Allergies-Medications (Allergen,Severity, Reaction): Coded Allergies: No Known Allergies (Verified Allergy, Unknown, 07/30/17) Reported Meds & Prescriptions Reported Meds & Active Scripts Active Reported Vitamin B-12 (Cyanocobalamin) 1,000 Mcg Tab 1,000 Mcg PO DAILY Tylenol Extra Strength (Acetaminophen) 500 Mg Tablet 2 Tab PO DAILY Glucosamine (Glucosamine Sulfate) 1,000 Mg Cap 1,000 Mg PO DAILY Lovastatin 20 Mg Tab 20 Mg PO DAILY Amlodipine (Amlodipine Besylate) 10 Mg Tab 10 Mg PO DAILY Narrative Medication Allergies and medications reviewed Review of Systems Except as stated in HPI: all other systems reviewed are Neg General / Constitutional: No: Fever Eyes: No: Visual changes HENT: No: Headaches Cardiovascular: No: Chest Pain or Discomfort Respiratory: No: Shortness of Breath Gastrointestinal: No: Abdominal Pain Genitourinary: Positive: Urgency, Hematuria, Decreased Urinary Output, Oliguria , Pelvic Pain, No: Frequency, Dysuria Musculoskeletal: No: Pain Skin: No Rash Neurologic: No: Weakness Psychiatric: No: Depression Endocrine: No: Polydipsia Hematologic/Lymphatic: No: Easy Bruising Physical Exam Narrative GENERAL: Awake and alert oriented 3 no acute distress vital signs afebrile normal stable SKIN: Warm and dry. Color is normal diaphoresis in a supine HEAD: Atraumatic. Normocephalic. EYES: Pupils equal and round. No scleral icterus. No injection or drainage. ENT: No nasal bleeding or discharge. Mucous membranes pink and moist. NECK: Trachea midline. No JVD. Supple nontender full range of motion CARDIOVASCULAR: Regular rate and rhythm. S1-S2 no murmurs rubs gallops RESPIRATORY: No accessory muscle use. Clear to auscultation. Breath sounds equal bilaterally. GASTROINTESTINAL: Abdomen soft, non-tender, nondistended. Hepatic and splenic margins not palpable. Mild suprapubic fullness, no CVA tenderness MUSCULOSKELETAL: Extremities without clubbing, cyanosis, or edema. No obvious deformities. NEUROLOGICAL: Awake and alert. No obvious cranial nerve deficits. Motor grossly within normal limits. Five out of 5 muscle strength in the arms and legs. Normal speech. PSYCHIATRIC: Appropriate mood and affect; insight and judgment normal. Data Data Last Documented VS Vital Signs Date Time Temp Pulse Resp B/P (MAP) Pulse Ox O2 Delivery O2 Flow Rate FiO2 07/30/17 02:30 98.1 92 24 161/80 (107) 96 Orders Orders Complete Blood Count With Diff (07/30/17 02:52) Comprehensive Metabolic Panel (07/30/17 02:52) Urinalysis - C+S If Indicated (07/30/17 02:52) Replace Diaz (07/30/17 02:52) Iv Access Insert/Monitor (07/30/17 03:04) Sodium Chlorid 0.9% 500 Ml Inj (Ns 500 M (07/30/17 03:15) Urine Culture (07/30/17 03:05) Labs Laboratory Tests Test 07/30/17 03:05 White Blood Count 11.1 TH/MM3 Red Blood Count 4.41 MIL/MM3 Hemoglobin 13.9 GM/DL Hematocrit 43.3 % Mean Corpuscular Volume 98.1 FL Mean Corpuscular Hemoglobin 31.6 PG Mean Corpuscular Hemoglobin Concent 32.2 % Red Cell Distribution Width 17.9 % Platelet Count 375 TH/MM3 Mean Platelet Volume 7.6 FL Neutrophils (%) (Auto) 70.6 % Lymphocytes (%) (Auto) 17.7 % Monocytes (%) (Auto) 6.6 % Eosinophils (%) (Auto) 4.3 % Basophils (%) (Auto) 0.8 % Neutrophils # (Auto) 7.8 TH/MM3 Lymphocytes # (Auto) 2.0 TH/MM3 Monocytes # (Auto) 0.7 TH/MM3 Eosinophils # (Auto) 0.5 TH/MM3 Basophils # (Auto) 0.1 TH/MM3 CBC Comment DIFF FINAL Differential Comment Urine Color YELLOW Urine Turbidity CLEAR Urine pH 5.5 Urine Specific Randolph LESS/EQUAL 1.005 Urine Protein NEG mg/dL Urine Glucose (UA) NEG mg/dL Urine Ketones NEG mg/dL Urine Occult Blood LARGE Urine Nitrite NEG Urine Bilirubin NEG Urine Urobilinogen 0.2 MG/DL Urine Leukocyte Esterase SMALL Urine RBC 4-9 /hpf Urine WBC 9-14 /hpf Urine WBC Clumps FEW Urine Squamous Epithelial Cells 0-5 /hpf Urine Bacteria OCC /hpf Microscopic Urinalysis Comment CATH-CULTURE IND Blood Urea Nitrogen 13 MG/DL Random Glucose 92 MG/DL Albumin 3.3 GM/DL Calcium Level 8.4 MG/DL Sodium Level 140 MEQ/L Potassium Level 3.8 MEQ/L Chloride Level 109 MEQ/L Carbon Dioxide Level 20.5 MEQ/L Anion Gap 11 MEQ/L [facility] Medical Decision Making Medical Screen Exam Complete: Yes Emergency Medical Condition: Yes Medical Record Reviewed: Yes Differential Diagnosis Urinary retention, urinary tract infection, prostatic hypertrophy Narrative Course Patient's Diaz catheter change, patient had 1000 cc of clear urine effluent postvoid residual. Probable clots obstructing original catheter. Patient is mildly elevated white blood cell count 11.1, urinalysis consistent with probable hematuria now cleared, as well as small leukocyte esterase and white blood cells consistent with possible early infection Patient had oral antibiotics added to his medical regimen. Patient to follow- up with his urologist, call tomorrow, surgery scheduled for Diagnosis Primary Impression: Urinary retention Patient Instructions: General Instructions, Urinary Leg Bag (GEN), Urinary Retention in Men (ED) Additional Instructions: Where Diaz with leg bag. Bactrim DS 1 tablet twice daily for 7 days. Follow- up with urologist as scheduled, call tomorrow to report today's presentation to the emergency department as well as the augmented care of antibiotics twice daily. Follow-up with your private medical physician, return promptly for worsening Scripts Sulfamethoxazole-Trimethoprim (Bactrim DS) 800-160 Mg Tab 1 TAB PO BID for Infection, #14 TAB 0 Refills Prov: Robbie Lyles MD 07/30/17 Disposition: 01 DISCHARGE HOME Condition: Stable Robbie Lyles MD Jul 30, 2017 03:30
[2017-07-30 03:40] VITALS: BP 129/66; PULSE 72; RESP 16; O2SAT 99
[2017-07-30] MEDS ORDERED: SULFAMETHOXAZOLE-TRIMETHOPRIM DS 800-160 MG TAB PO ONE (04:00)
== END 2017-07-30 04:17 | disposition home or self-care (01) ==
LOC: PHED 02:25
DX: N40.1 Benign prostatic hyperplasia with lower urinary tract symptoms (principal); R33.8 Other retention of urine; B95.61 Methicillin susceptible Staphylococcus aureus infection as the cause of diseases classified elsewhere; B95.2 Enterococcus as the cause of diseases classified elsewhere; E78.00 Pure hypercholesterolemia, unspecified; J44.9 Chronic obstructive pulmonary disease, unspecified; I10 Essential (primary) hypertension; F17.290 Nicotine dependence, other tobacco product, uncomplicated; Z46.6 Encounter for fitting and adjustment of urinary device
CPT/HCPCS: 51702; 80053; 81001; 85025; 86403; 87077; 87086; 87186; 99283; J7040

== ENCOUNTER → 2017-11-10 | Day surgery (SDC) | payer MEDICARE ==
[~2017-11-10] MED LIST changes: +ACET-822 PO; +BACT800T5 PO; +CHLORHEXIDINE GLUCONATE 2 % 1 PACK (2 CLOTHS) TOPICAL PRN; +EPINEPHrine HCL PF/SF (1:1000) 1 MG/ML AMP I-OCULAR ONE; +HYALURONIDASE/LIDOCAINE/BUPIVACAINE 5 ML SYR RIGHT EYE ONE; +LACTATED RINGER'S 1000 ML IV PRN; +LIDOCAINE HCL 1% PF 30 ML VIAL ONE; +POVIDONE IODINE 5% (ANTISEPSIS KIT) 4 APPLICATIONS EACH NARE PRN; +PROPARACAINE HCL 0.5% OPHT SOLN 15 ML BTL RIGHT EYE ONE; +PROPOFOL 200 MG/20 ML AMP ONE; +SODIUM CHLORID 0.9% 500 ML IV PRN; +TOBRAMYCIN/DEXAMETHASONE OPTH OINT 3.5 GM TUBE ONE; +VITA10002 PO
[2017-11-10 07:20] VITALS: PULSE 62
[2017-11-10] MEDS: CYCLOPENTOLATE HCL 1% OPHT SOLN 2 ML BTL RIGHT EYE SCH ×4 (07:20→07:35)
[2017-11-10] MEDS: FLURBIPROFEN 0.03% OPHT SOLN 2.5 ML BTL RIGHT EYE SCH ×4 (07:20→07:35)
[2017-11-10] MEDS: TROPICAMIDE 1% OPHT SOLN 15 ML BTL RIGHT EYE SCH ×4 (07:20→07:35)
[2017-11-10] MEDS: PHENYLEPHRINE HCL 10% OPTH SOLN 5 ML BTL RIGHT EYE SCH ×4 (07:20→07:35)
[2017-11-10 07:57] VITALS: PULSE 81
[2017-11-10 09:35] VITALS: BP 117/68; PULSE 50; RESP 16; TEMP 98.2; O2SAT 97
--- NOTE | 2017-11-10 10:20 | MP ---
cc: Bishnu Ibarra MD DATE OF OPERATION: 11/10/2017 [facility] NUMBER: [id number] PREOPERATIVE DIAGNOSIS: Visually significant cataract right eye. POSTOPERATIVE DIAGNOSIS: Visually significant cataract right eye. OPERATION: Phacoemulsification with posterior chamber lens implantation, right eye. SURGEON: Bishnu Ibarra MD ANESTHESIA: Retrobulbar with MAC. COMPLICATIONS: None. PROCEDURE: After informed consent was obtained, the patient was brought into the operative suite and placed on appropriate monitors by the Anesthesia Service. The patient had received a prior retrobulbar injection of local anesthetic by the Anesthesia Service in the holding area. The patient's operative eye was then prepped and draped in the usual sterile fashion. A wire lid speculum was placed. A paracentesis incision was made in the peripheral cornea with a 1 mm ruth keratome. The anterior chamber was filled with viscoelastic. The anterior chamber was then entered through a stepped, clear corneal incision using a sharp 3 mm ruth keratome. A circular tear capsulorrhexis was then made with a bent needle cystitome. Following hydrodissection of the lens nucleus with balanced saline, phaco-emulsification of the nucleus was performed using a modified chopping technique. The remaining cortex was removed with irrigation/aspiration. The prior two procedures were both performed using the handpieces of the [employer] phaco unit. The capsular bag was then filled with viscoelastic. The intraocular lens was then injected into the capsular bag and positioned. The type of intraocular lens and its power can be found elsewhere in this chart. The remaining viscoelastic was then removed from the anterior chamber with the IA handpiece. The anterior chamber was reformed with balanced saline. The wound was then closed securely with stromal hydration. It was found to be watertight to an intraocular pressure of at least 30 mmHg by palpation. A small amount of balanced salt solution was then removed through the paracentesis site and the intraocular pressure at the end of the case was approximately 20 by palpation. All drapes were then removed. TobraDex ointment was then placed in the eye, which was closed beneath a semi-pressure patch dressing. The patient tolerated this procedure well and left the operating room awake and alert. The patient is to follow-up in my office in the morning. MD TIFFANI Sawyer/SALVADOR , 10:08 AM , 10:18 AM
== END | disposition home or self-care (01) ==
LOC: PHSDC 06:24
PROVIDERS: ATTEND Optometrist Occupational Vision
DX: H25.811 Combined forms of age-related cataract, right eye (principal)
CPT/HCPCS: 00142; 66985; J0171; J7040; V2632